=== PATIENT | male | born 2000 | race Caucasian/White ===

== ENCOUNTER 2023-11-19 08:45 | Outpatient (CLI) | payer OTHER ==
--- NOTE | 2023-11-19 13:25 | XRAY Report ---
PROCEDURE: Foot 1-2V RT INDICATIONS: UNSPECIFIED SPRAIN OF RIGHT FOOT TECHNIQUE: 2 views of the foot were acquired. COMPARISON: None. FINDINGS: Bones: No fractures or dislocations. No suspicious bony lesions. Soft tissues: No tibiotalar joint effusion. Achilles tendon appears normal. IMPRESSION: No acute bony abnormality. Reviewed by: Tc Garcia MD on 11/19/2023 1:23 PM PDT Approved by: Tc Garcia MD on 11/19/2023 1:23 PM PDT Station ID: [id number]
== END 2023-11-19 10:57 | disposition home or self-care (01) ==
LOC: DI.N 08:45
PROVIDERS: ATTEND Nurse Practitioner
DX: S93.601A Unspecified sprain of right foot, initial encounter (principal)